=== PATIENT | male | born 1960 | race Caucasian/White ===

== ENCOUNTER 2016-09-21 19:42 | Emergency (ER) | payer OTHER ==
--- NOTE | ~2016-09-21 | CT16 ---
[facility]. [facility] A Service of [facility] RADIOLOGY TEXT RESULTS PATIENT: MARIALUISA HORTA LOCATION: SED : 64 UNIT #: [id number] AGE: [address]: Hitesh Meek MD SEX: M ORDER DR: [id number] [place] [id number] MR#: [id number] Acc #: [id number] NAME: MARIALUISA HORTA : 1960 SEX: M STUDY DATE/TIME: 09/21/2016 21:19 UNIT: SED ROOM: STUDY DESCRIPTION: CT Angio Chest for PE Attending Physician: Hitesh Meek M.D. Ordering Physician: Hitesh Meek M.D. Primary Care Physician: Alireza Arnold M.D. MEDICAL IMAGING REPORT This report is preliminary unless electronic signature is present. EXAM CTA chest, PE protocol. INDICATION Hemoptysis since 1 p.m. today with hypertension. PROCEDURE Contrast-enhanced CTA of the chest, attention on opacification of the pulmonary arteries. Coronal, 3D, MIP, sagittal reformatted images reconstructed and submitted. This CT exam was performed with one or more of the following radiation dose reduction techniques: automatic exposure control, adjustment of mA and/or kV according to patient size, and iterative reconstruction. COMPARISON None. FINDINGS Suboptimal contrast bolus despite repeat injection. There is no large central pulmonary embolus. No definite smaller peripheral embolus is seen, but difficult to completely excluded. No evidence for acute aortic injury. No adenopathy. No acute findings in the included upper abdomen. Paraseptal emphysema on the lung apices, right greater than left. Patchy infiltrate in the superior segment of the right lower lobe. No aggressive-appearing bone lesion. IMPRESSION 1. No evidence for pulmonary embolus. 2. Patchy opacity in the superior segment of the right lower lobe, suspicious for pneumonia. Otherwise, the lungs are clear. 3. Paraseptal emphysema in the apices, right greater than left. 1. [facility] A Service of [facility] RADIOLOGY TEXT RESULTS PATIENT: MARIALUISA HORTA LOCATION: [facility] : 64 UNIT #: [id number] AGE: [address]: Hitesh Meek MD SEX: M ORDER DR: Dictated by... Jose Elias Ham M.D. THIS IS AN ELECTRONICALLY VERIFIED REPORT Jose Elias Ham M.D. at 09/22/2016 2:27 PM SHAHRZAD/miller TD: 09/21/2016 23:16 JOB #: [id number] MEDICAL IMAGING REPORT Page 1 of 1
[~2016-09-21 19:42] MED LIST: BLOOD PRESSURE MED PO; CHOLESTEROL MED PO
[2016-09-21] MEDS ORDERED: LIPITOR20 MG PO (19:52)
[2016-09-21] MEDS ORDERED: BAYER CHEWABLE81 MG PO (19:52)
[2016-09-21] MEDS ORDERED: TOPROL XL50 MG PO (19:52)
[2016-09-21] MEDS ORDERED: PLETAL100 MG PO (19:52)
[2016-09-21] MEDS ORDERED: CLOPIDOGREL75 MG PO (19:52)
[2016-09-21] MEDS ORDERED: CHLORTHALIDONE25 MG PO (19:53)
[2016-09-21 20:29] LABS: BASOPHIL% 0.5 % (0-2.5); EOSINOPHIL% 0.5 % (0.0-7.0); HEMOGLOBIN 14.7 gm/dL (13.0-16.0); LYMPHOCYTE# 2.4 X10e3 (1.0-3.5); LYMPHOCYTE% 28.3 % (17.0-45.0); MEAN CELL VOLUME 88.5 FL (83-96); MEAN CORPUSCULAR HEMOGLOBIN 31.1 PG (28-34); MEAN CORPUSCULAR HGB CONC 35.1 g/dL (30-36); MEAN PLATELET VOLUME 6.6 FL (6.5-11.5); MONOCYTE% 11.3 % (3.0-12.0); NEUTROPHIL% 59.4 % (40-75); PLATELET COUNT 301 X10e3 (140-420); RED BLOOD COUNT 4.74 X10e (3.90-5.60); RED CELL DISTRIBUTION WIDTH 13.7 % (11.0-15.5); WHITE BLOOD COUNT 8.4 X10e3 (4.0-10.5)
[2016-09-21 20:31] LABS: DIFF IND NO
[2016-09-21 20:42] LABS: PROTHROMBIN TIME (PATIENT) 11.4 SECONDS (9.5-12.4)
[2016-09-21 20:50] LABS: PARTIAL THROMBOPLASTIN TIME 28.1 SECONDS (25.6-38.1)
[2016-09-21 20:51] LABS: ALBUMIN SERUM 4.7 g/dL (3.5-5.0); BILIRUBIN, DIRECT 0.2 mg/dL (0.0-0.2); BILIRUBIN,INDIRECT 0.9 mg/dL (0.0-0.9); BILIRUBIN,TOTAL 1.1 mg/dL (0.2-2.0); CALCIUM SERUM 9.2 mg/dL (8.4-10.2); CREATININE SERUM 0.8 mg/dL (0.6-1.4); POTASSIUM 3.1 mmol/L (3.5-5.1); PROTEIN TOTAL SERUM 7.8 g/dL (6.0-8.3)
[2016-09-22] MEDS ORDERED: DOXYCYCLINE150 MG (21:45)
== END 2016-09-21 23:03 | disposition home or self-care (01) ==
LOC: SED 19:42
PROVIDERS: Emergency Medicine
DX: J18.9 Pneumonia, unspecified organism (principal); J44.9 Chronic obstructive pulmonary disease, unspecified; F17.200 Nicotine dependence, unspecified, uncomplicated
CPT/HCPCS: 36415; 71275; 80048; 80076; 85025; 85610; 85730; 99284; Q9967

== ENCOUNTER 2016-09-22 21:37 | Inpatient (IN) | payer OTHER ==
--- NOTE | ~2016-09-22 | DS ---
Unit #: [id number] #: [id number] Patient: MARIALUISA HORTA [id number] [address] [place], [place] [address] [id number] I MR#: [id number] NAME: MARIALUISA HORTA ROOM: 567 Age: 55 Sex: M Admission Date: 09/23/2016 : 1960 Discharge Date: 09/26/2016 Attending Physician: Travon Valdez M.D. Primary Care Physician: Alireza Arnold M.D. DISCHARGE SUMMARY FINAL DIAGNOSES 1. Acute hypoxic respiratory failure, resolved. 2. Right lower lobe pneumonia. 3. Hemoptysis, which is resolved. 4. Acute exacerbation of chronic obstructive pulmonary disease. 5. Tobacco abuse. 6. Nonsustained V-tach. 7. Alcohol-induced cardiomyopathy. 8. Coronary artery disease, status post percutaneous coronary intervention and stent placement in June 2016. 9. Hypokalemia. 10. Tobacco abuse. 11. Peripheral vascular disease possible. DISCHARGE MEDICATIONS 1. Mini neb treatment q.i.d. 2. Tylenol q.6 p.r.n. 3. Maxitrol OP suspension, one drop b.i.d. 4. Discontinue Pletal. 5. Nicotine patch 21 mg daily. 6. Toprol XL 50 mg twice a day. 7. Chlorthalidone 25 mg daily. 8. Lipitor 40 mg q. h.s. 9. Aspirin 81 mg daily. 10. Plavix 75 mg daily. 11. Potassium 20 mEq daily. 12. Levaquin 500 mg daily. 13. Prednisone tapering dose. CONSULTATION DURING HOSPITALIZATION 1. Dr. Padmini Lloyd - Pulmonary Services. 2. Dr. Mookie Melchor - Cardiology Services. PROCEDURE PERFORMED DURING HOSPITALIZATION Bronchoscopy which was done on 09/23/[address] Lloyd which shows no endobronchial lesions but a lot of blood was seen which was aspirated. LAB WORKUP ON DISCHARGE Sodium 133, potassium 3.9, chloride 96, BUN 23, creatinine 0.8, magnesium 2.1, troponin 0.03. Sputum culture is 3+ normal kathya. Bronch culture is 3+ normal kathya. CBC shows WBC 14.1, hemoglobin 14.4, hematocrit 43.5 and platelet count of Unit #: [id number] #: [id number] Patient: MARIALUISA HORTA 320. Procalcitonin level less than 0.05. SIGNIFICANT RADIOLOGICAL STUDIES DONE DURING HOSPITALIZATION CTA of the chest which shows no evidence of pulmonary embolism. Patchy opacity is seen in the right lower lobe. Paraseptal emphysema in apices. HOSPITAL COURSE Mr. Marialuisa Horta is a 55-year-old male who came with shortness of breath and chest tightness and hemoptysis. The patient was admitted to telemetry unit at [facility]. Patient was started on IV Rocephin and IV Zithromax and IV Solu-Medrol. Dr. Lloyd was consulted. Patient had a bronchoscopy done, results are as above. The patient's hemoptysis has completely resolved. He is doing much better at this time. Tobacco cessation counseling has been done. The patient will be discharged home on Levaquin and prednisone tapering dose. Tobacco cessation counseling has been done. The patient did have a nonsustained V-tach. The patient does have a history of coronary artery disease, status post stent placement. The patient has been evaluated by cardiology and beta patti dose has been increased. Patient will return to cardiology in a few days on Monday for event monitor. He is not complaining of any chest pain or shortness of breath. EXAMINATION ON DISCHARGE VITAL SIGNS: Blood pressure is 151/99, respiratory rate 20, pulse is 73, temperature 97.6. Oxygen saturation is 96%. HEAD: Normocephalic. CHEST: Fair air entry. CVS: S1, S2 positive. Regular rhythm. ABDOMEN: Soft. DISCHARGE INSTRUCTIONS 1. The patient is being discharged home in stable condition. 2. Follow up with primary care provider in one week. 3. Follow up with cardiology on Monday to have event monitor placed. 4. Follow up with Dr. Lloyd in two weeks. Patient may need repeat bronchoscopy. 5. Tobacco cessation counseling has been done. Dictated by... Leena Hsu M.D. Gabriele TD: 09/27/2016 07:59 JOB #: [id number] Unit #: [id number] #: [id number] Patient: MARIALUISA HORTA DISCHARGE SUMMARY Page 1 of 1 X Leena Hsu MD DISCHARGE SUMMARY
--- NOTE | ~2016-09-22 | CO ---
Unit #: [id number] #: [id number] Patient: MARIALUISA HORTA [id number] [address] [place], [place] [address] [id number] I MR#: [id number] NAME: MARIALUISA HORTA ROOM: 567 Age: 55 Sex: M Admission Date: 09/22/2016 : 1960 Attending Physician: Travon Valdez M.D. Primary Care Physician: Alireza Arnold M.D. CONSULTATION REPORT HISTORY OF PRESENT ILLNESS Patient basically is a 55-year-old male who has a past medical history significant for likely COPD, coronary artery disease status post coronary stent placement, according to the patient, recently. He came in with the complaint of cough, shortness of breath and sputum production, along with some hemoptysis. I am seeing the patient at the bedside. He denies any headache, blurry vision. No chest pain. PAST MEDICAL HISTORY Significant for coronary artery disease status post angioplasty and stent placement, COPD, hypertension, dyslipidemia. SOCIAL HISTORY One pack smoker per day. Denies alcohol or drug abuse. FAMILY HISTORY None as per record. MEDICATIONS As per MAR. Has been reviewed. PHYSICAL EXAMINATION VITAL SIGNS: Temperature 98, pulse rate 70, respirations 12, blood pressure 130/70. NEUROLOGIC: Awake, alert and oriented. No neuro deficits. HEENT: PERRLA. EOMI. NECK: Supple. No JVD. CHEST: Bilateral air entry. Bilateral mild rhonchi. GI: Nontender. Soft. Bowel sounds positive. EXTREMITIES: No edema. SKIN: No rashes, no ulcer. LYMPHATIC: No lymphadenopathy. DIAGNOSTIC STUDIES Labs and imaging have been reviewed. ASSESSMENT 1. Hemoptysis. 2. Acute exacerbation of COPD. 3. Pneumonia, rule out any endobronchial lesion. PLAN Plan is to admit the patient and start him on IV antibiotics, continue bronchodilator, GI and DVT prophylaxis, IV steroids. Consent for Unit #: [id number] #: [id number] Patient: MARIALUISA HORTA bronchoscopy tomorrow. Patient will be closely monitored. Please see orders for detailed plan. Thank you very much for this consultation. We will continue to follow the patient. Dictated by... Padmini Lloyd M.D. ADAIR/db TD: 09/23/2016 10:38 JOB #: [id number] CONSULTATION REPORT Page 1 of 1 X Padmini Lloyd MD CONSULTATION REPORT
--- NOTE | ~2016-09-22 | CO ---
Unit #: [id number] #: [id number] Patient: MARIALUISA HORTA [id number] [address] [place], [place] [address] [id number] I MR#: [id number] NAME: MARIALUISA HORTA ROOM: 567 Age: 55 Sex: M Admission Date: 09/23/2016 : 1960 Attending Physician: Travon Valdez M.D. Primary Care Physician: Alireza Arnold M.D. CONSULTATION REPORT REASON FOR CONSULTATION Nonsustained ventricular tachycardia. HISTORY OF PRESENT ILLNESS This is a 55-year-old white male with history of having angioplasty and stents, drug-eluting stents placed to the LAD and RCA back in 06/[address] Sprague. His ejection fraction is 55% to 60% with mild aortic stenosis, hyperlipidemia, hypertension, COPD, continues to smoke and some alcohol abuse who came to the emergency room with hemoptysis and increased shortness of breath. Over the course of this hospitalization, he has been treated by Dr. Lloyd and has been had bronchoscopies and diagnosed with right lower lobe pneumonia and treatment for exacerbation of COPD. Overall, the patient has improved and plans were to go home possibly today on the quality assurance monitor body shows 11 to 12 beat run of nonsustained ventricular tachycardia. The patient was asymptomatic. The patient currently is on a beta-patti. We have been asked to assist with evaluation and management. During this hospitalization, he denies any chest pain; pain in his neck, bilateral jaws, shoulders, arms, or elbow. He denies any palpitations. His last office visit by Dr. Sprague was followed up after his stents, which was on 09/14. PAST MEDICAL HISTORY 1. Coronary artery disease, status post PCI and drug-eluting stent to the LAD on 06/17/2016 and status post PCI and drug-eluting stent to the RCA on 07/08/[address] Sprague at [facility]. 2. In 05/2016, 2D echo shows LVEF of 55% to 60% with mild mitral regurgitation, mild tricuspid regurgitation, and mild aortic stenosis. 3. Hyperlipidemia. 4. Hypertension. 5. COPD. 6. Nicotine abuse. 7. Alcohol abuse. 8. Marijuana abuse. PAST SURGICAL HISTORY Hand surgery as a child and status post PCI and drug-eluting stent to the LAD and RCA in 06/2016. HOME MEDICATIONS 1. Aspirin 81 mg p.o. daily. 2. Plavix 75 mg p.o. daily. 3. Lipitor 40 mg p.o. daily. 4. Toprol-XL 25 mg p.o. daily. 5. Pletal 100 mg p.o. twice daily. Unit #: [id number] #: [id number] Patient: MARIALUISA HORTA 6. Chlorthalidone 25 mg p.o. daily. 7. Doxycycline, dosage and frequency unavailable. ALLERGIES No known drug allergies. SOCIAL HISTORY The patient lives with his family. 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 He smokes a half to a pack of cigarettes a day, has been smoking most of his adult life. He drinks four or five beers a day, has been drinking for years but no hard liquor. Does smoke occasional marijuana, but no other polysubstance abuse reported. FAMILY HISTORY No known coronary artery disease in his immediate family members. REVIEW OF SYSTEMS See details in HPI. PHYSICAL EXAMINATION GENERAL: Mr. Horta is a 55-year-old white male, in no acute respiratory distress. He is awake, alert, and oriented. VITAL SIGNS: Currently, blood pressure 147/88, heart rate 76, respirations 18, temperature is 97.5, O2 saturations 95% on room air. NECK: Trachea midline. No thyromegaly or lymphadenopathy. Normal carotid upstrokes. No jugular venous distention. HEART: S1 and S2. Regular rate and rhythm. No clicks, murmurs, or rubs. LUNGS: Diminished. Few faint scattered wheezes that clears with cough. ABDOMEN: Soft and nontender. Positive bowel sounds present. No hepatosplenomegaly. EXTREMITIES: Pedal pulses are palpable. No pedal edema. DIAGNOSTIC STUDIES LABORATORY RESULTS: Glucose 145, BUN 23, creatinine 0.8, eGFR less than 102, sodium 133, potassium 3.9, chloride 96, CO2 of 27, calcium is 9.3, magnesium is 2.1. Total protein 7.4, albumin 4.1, bilirubin total 0.4, AST 20, ALT 19, alkaline phosphatase is 74. Alcohol level less than 5. WBCs 14.1, hemoglobin 14.4, hematocrit 43.5, and platelets is 320. Initial cardiac enzymes on admission; CK-MB is 2.3 with troponin less than 0.05. Cardiac enzymes today; CK total 65, MB is 4.7, percentage of MB 7.2, and troponin 0.03. INR is 1.0. Urine tox screen positive for marijuana, otherwise negative. Sputum Gram stain shows moderate gram positive cocci in pairs and chains, and clusters of viral sputum culture with normal kathya. Bronchoscopy final culture, 3+ normal respiratory kathya present. IMAGING STUDIES: CT of the chest on admission shows no evidence for pulmonary embolism, patchy opacity in the right lower lobe suspicious for pneumonia and some paraseptal emphysema. Chest x-ray shows no dense consolidation or opacity in the right lung. EKG shows sinus bradycardia, heart rate 58 beats per minute, early repolarization. Poor R-wave progression, left ventricular hypertrophy. Telemetry showed 11-beat run of nonsustained ventricular tachycardia. Unit #: [id number] #: [id number] Patient: MARIALUISA HORTA IMPRESSION 1. Mild sepsis, right lower lobe pneumonia. 2. Exacerbation of chronic obstructive pulmonary disease. 3. Nonsustained ventricular tachycardia. 4. Coronary artery disease, status post percutaneous coronary intervention and drug-eluting stent to the left anterior descending and right coronary artery in 06/2016. 5. Hyperlipidemia. 6. Hypertension. 7. Nicotine and alcohol abuse. 8. Marijuana use. 9. LVEF of 55% to 60% on 2D echo in 05/2016, mild aortic stenosis. PLAN 1. Cardiology consult to assist with evaluating and managing nonsustained ventricular tachycardia. 2. The patient was asymptomatic. The patient is on a beta-patti. We will increase the beta-patti, looking at his blood pressure can tolerate. Also, the patient's potassium level today is 3.9 and we will try to keep it over 4 like around 4.5, so the patient will be sent home on supplemental potassium. On exam, there is no signs or symptoms of unstable angina. Cardiac enzymes are negative. The patient has no signs or symptoms of acute congestive heart failure. 3. After Dr. Melchor examined the patient and reviewed the patient's records and history, felt it was permissible for the patient to go home today on the increased medications and have arranged an event recorder to start on this Monday. Instruct this patient to come to our office to get the event recorder and have notified our staff. 4. The patient is to follow with Dr. Sprague in about 4 to 6 weeks and by then the event recorder will be completed. 5. Further recommendations pending per Dr. Melchor. 6. Continue treatment for his pneumonia, exacerbation of chronic obstructive pulmonary disease. Encourage the patient to completely quit smoking, drinking alcohol, and stop marijuana use. Smoking cessation information provided to the patient and offered the patient's services to help with his addiction. The patient is noted to have been on Pletal according to the patient looking on the pill bottle, it was prescribed by Dr. Arnold's office that will be stopped due to the patient having hemoptysis on admission. He needs to continue on his Plavix and aspirin; however, for his recent PCI and drug-eluting stents. Instruct the patient if any recurrent hemoptysis, to call Dr. Sprague's office or to return to the emergency room if necessary if he sees any unusual bleeding. Thank you very much for allowing us to assist in care. Dictated by... Sheridan Tello A.P.R.N. for Mookie Melchor M.D. ELISHA/paco TD: 09/27/2016 12:18 JOB #: [id number] Unit #: [id number] #: [id number] Patient: MARIALUISA HORTA CONSULTATION REPORT Page 1 of 1 X Sheridan Tello APRN X CONSULTATION REPORT
--- NOTE | ~2016-09-22 | HP ---
Unit #: [id number] #: [id number] Patient: MARIALUISA HORTA [id number] [address] [place], [place] [address] [id number] I MR#: [id number] NAME: MARIALUISA HORTA ROOM: 567 Age: 55 Sex: M Admission Date: 09/23/2016 : 1960 Attending Physician: Travon Valdez M.D. Primary Care Physician: Alireza Arnold M.D. HISTORY AND PHYSICAL CHIEF COMPLAINT Hemoptysis. HISTORY OF PRESENTING ILLNESS This 55-year-old male who has a history of hypertension, hyperlipidemia, coronary artery disease status post stent placement, tobacco abuse, came to ER on Monday with hemoptysis and shortness of breath. Patient was diagnosed with pneumonia and was discharged home with antibiotic doxycycline. The patient continued to get worse. Yesterday he was having severe and significant hemoptysis and shortness of breath which was not getting better. He came to ER for further evaluation and was admitted to hospital for right lower lung pneumonia. According to patient, he is still having significant blood in the sputum. He is complaining of shortness of breath although no orthopnea, no paroxysmal nocturnal dyspnea. He does have exertional dyspnea. He does wheeze off and on. Patient is a smoker, has been smoking two packs per day for a long period of time. He does complain of some chest pain on the right lower chest. No complaint of abdominal pain. No complaint of nausea or vomiting. He is also complaining of left eye pain. While working he thinks that there was a foreign body went in his eye and since then he has been having increased drainage although he does not have any pain in the eye. PAST MEDICAL HISTORY 1. Coronary artery disease, status post angioplasty, stent placement in June 2016 at [facility] by Dr. Sprague. 2. COPD. 3. Hypertension. 4. Hyperlipidemia. 5. Possible peripheral vascular disease. SOCIAL HISTORY Patient has a history of smoking, has been smoking for long period of time, smokes two packs per day. He does drink beer almost three to seven beers on a daily basis. No history of drug abuse. FAMILY HISTORY Family history is not significant. ALLERGIES No known drug allergies. HOME MEDICATIONS Home medications are: 1. Aspirin 81 mg daily. Unit #: [id number] #: [id number] Patient: MARIALUISA HORTA 2. Plavix 75 mg daily. 3. Lipitor 40 mg q.h.s. 4. Toprol 25 mg daily. 5. Pletal 100 mg b.i.d. 6. Chlorthalidone 25 mg daily. 7. Doxycycline. REVIEW OF SYMPTOMS As per history of presenting illness. No history of dizziness. No history of fever, chills or rigors. No history of ear, nose, throat problem. No history of abdominal pain. No nausea or vomiting. No diarrhea. No black colored stools. Rest is as per history of presenting illness. PHYSICAL EXAMINATION GENERAL APPEARANCE: Patient is lying in bed, no respiratory distress at this time. VITAL SIGNS: Blood pressure is 151/88, on admission it was 171/102, respiratory rate 20, pulse is 91, temperature 97.9, and oxygen saturation is 91%. HEENT: Head is normocephalic. Eye movements are normal. Left eye there is mild conjunctival congestion and a lot of clear drainage and watery drainage. No nystagmus. NECK: Neck is supple. No carotid bruit. CHEST: Has decreased air entry. Bilateral wheezing is heard. Right lower lobe crackle is heard. CVS: S1, S2 positive, regular rhythm. ABDOMEN: Abdomen is soft. No tenderness. No rigidity. No rebound. EXTREMITIES: Negative edema. Pulses are palpable. STRUCTURAL METAL WORKER: Awake, alert, oriented x3. No focal neurological deficit. DIAGNOSTIC STUDIES LABORATORY WORKUP: WBC 8.4, hemoglobin 15.1, hematocrit 42.7 and platelet count of 314. Troponin is less than 0.05. Sodium 128, potassium 3.2, chloride 90, BUN 18, creatinine 0.9. Liver enzymes are normal. Alcohol in the blood was less than 5. Urine drug screen is positive for marijuana. Procalcitonin level is less than 0.05. IMAGING: Chest x-ray single view was done which shows no dense consolidation. Opacity in the right lung is seen. CT of the chest was done on September 21 which shows no evidence of pulmonary embolism. Patchy opacity is emma in the right lower lobe suspicious for pneumonia. ASSESSMENT Patient is being admitted to a telemetry unit with diagnoses of: 1. Right lower lobe pneumonia, most likely community acquired pneumonia. 2. Significant persistent hemoptysis. 3. Acute exacerbation of chronic obstructive pulmonary disease. 4. Tobacco abuse. 5. History of coronary artery disease. 6. Hypertension. PLAN Plan is admit to telemetry unit. Dr. Lloyd has been consulted. IV antibiotics have been started. IV Solu-Medrol is being started. NicoDerm patch will be placed. Mini-neb treatment q.6 h. will be done. Patient is Unit #: [id number] #: [id number] Patient: MARIALUISA HORTA scheduled for bronchoscopy tomorrow. Tobacco cessation counseling done. Discussed with patient and the patient's family about plan of care. Technical Developer will be consulted also for the left eye foreign body sensation to rule out any corneal tear. Please refer to progress note for further orders. Dictated by Jez Royal/roxi TD: 09/23/2016 16:50 JOB #: [id number] HISTORY AND PHYSICAL Page 1 of 1 X Leena Hsu MD X HISTORY AND PHYSICAL
--- NOTE | ~2016-09-22 | EKG ---
PATIENT: MARIALUISA HORTA UNIT #: [id number] Ventricular Rate: 58 BPM Atrial Rate: 58 BPM P-R Interval: 114 ms QRS Duration: 82 ms Q-T Interval: 396 ms QTC Calculation(Bezet): 388 ms P Fouke: 39 degrees Calculated R Fouke: 47 degrees Calculated T Fouke: 54 degrees Diagnosis Line: Sinus bradycardia Diagnosis Line: Otherwise normal ECG Diagnosis Line: No previous ECGs available Diagnosis Line: Confirmed by GILBERTO HAMMONDS MD ([id number]) on Diagnosis Line: 09/26/2016 5:53:24 PM INTERPRETING MD: JOSE ALFREDO
--- NOTE | ~2016-09-22 | CR72 ---
[facility] A Service [facility] RADIOLOGY TEXT RESULTS PATIENT: MARIALUISA HORTA LOCATION: [place] [address] : [birth year] UNIT #: [id number] AGE: [address]: Travon Valdez MD SEX: M ORDER DR: [id number] [address] [address] [id number] E MR#: [id number] Acc #: [id number] NAME: MARIALUISA HORTA : 1960 SEX: M STUDY DATE/TIME: 09/22/2016 22:05 UNIT: SED ROOM: STUDY DESCRIPTION: CR Chest Single View Portable Attending Physician: Anton Inman M.D. Ordering Physician: Anton Inman M.D. Primary Care Physician: Alireza Arnold M.D. MEDICAL IMAGING REPORT This report is preliminary unless electronic signature is present. EXAM Portable chest INDICATION Hemoptysis today. PROCEDURE Frontal view chest. COMPARISON CTA of the chest performed yesterday. FINDINGS Heart size is normal. No dense consolidation. Mild diffuse parenchymal coarsening. No pleural fluid or pneumothorax. Opacity in the right lung shown on the previous CT is not well seen. IMPRESSION No dense consolidation. Opacity in the right lung on yesterday's CT is not well seen on the study. Dictated by... Jose Elias Ham M.D. THIS IS AN ELECTRONICALLY VERIFIED REPORT Jose Elias Ham M.D. at 09/23/2016 3:08 PM EED/lamar TD: 09/22/2016 22:55 JOB #: [id number] [facility] A Service [facility] RADIOLOGY TEXT RESULTS PATIENT: MARIALUISA HORTA LOCATION: [place] [address] : [birth year] UNIT #: [id number] AGE: [address]: Travon Valdez MD SEX: M ORDER DR: MEDICAL IMAGING REPORT Page 1 of 1
--- NOTE | ~2016-09-22 | OR ---
Unit #: [id number] #: [id number] Patient: MARIALUISA HORTA [id number] [address] [address] [id number] MR#: [id number] NAME: MARIALUISA HORTA ROOM: 567 Date of Procedure: Admission Date: 09/23/2016 Surgeon: Padmini Lloyd M.D. : 1960 Attending Physician: Travon Valdez M.D. Primary Care Physician: Alireza Arnold M.D. PROCEDURE OPERATIVE NOTE PROCEDURE PERFORMED Diagnostic bronchoscopy. INDICATION Pneumonia. PRE-PROCEDURE DIAGNOSIS Pneumonia. POST PROCEDURE DIAGNOSIS Pneumonia. DETAILS OF THE PROCEDURE After taking consent from the patient explaining the risks and benefits, the patient was placed in a proper position. Bronchoscope introduced through the oral cavity. Vocal cords appeared to be symmetrically moving towards the midline. Trachea was normal. Pamela was sharp. We examined the right upper, right middle, right lower lobe, left upper lobe, lingula and left lower lobe. No endobronchial lesion was found. There were thick mucoid secretions in both lungs which were therapeutically suctioned. There was also blood-tinged secretions in the right lower lobe area which was suctioned. The patient tolerated the procedure very well. No complications happened. Dictated by... Jez Marie/victorino TD: 09/24/2016 15:57 JOB #: [id number] Unit #: [id number] #: [id number] Patient: MARIALUISA HORTA PROCEDURE OPERATIVE NOTE Page 1 of 1 X Padmini Lloyd MD PROCEDURE OPERATIVE NOTE
[~2016-09-22 21:37] MED LIST changes: +BAYER CHEWABLE81 MG PO; +CHLORTHALIDONE25 MG PO; +CLOPIDOGREL75 MG PO; +LIPITOR20 MG PO; +PLETAL100 MG PO; +TOPROL XL50 MG PO
[2016-09-22] MEDS ORDERED: DOXYCYCLINE150 MG (21:45)
[2016-09-22 22:24] LABS: BASOPHIL# 0.1 X10e3 (0-0.3); BASOPHIL% 0.7 % (0-2.5); DIFF IND NO; EOSINOPHIL# 0.1 X10e3 (0-0.7); EOSINOPHIL% 0.7 % (0.0-7.0); HEMATOCRIT 42.7 % (38.0-50.0); HEMOGLOBIN 15.1 gm/dL (13.0-16.0); LYMPHOCYTE# 1.8 X10e3 (1.0-3.5); LYMPHOCYTE% 21.8 % (17.0-45.0); MEAN CELL VOLUME 88.1 FL (83-96); MEAN CORPUSCULAR HEMOGLOBIN 31.1 PG (28-34); MEAN CORPUSCULAR HGB CONC 35.3 g/dL (30-36); MEAN PLATELET VOLUME 6.5 FL (6.5-11.5); MONOCYTE# 0.8 X10e3 (0-1.0); MONOCYTE% 9.5 % (3.0-12.0); NEUTROPHIL# 5.7 X10e3 (1.5-7.1); NEUTROPHIL% 67.3 % (40-75); PLATELET COUNT 314 X10e3 (140-420); RED BLOOD COUNT 4.84 X10e (3.90-5.60); RED CELL DISTRIBUTION WIDTH 13.6 % (11.0-15.5); WHITE BLOOD COUNT 8.4 X10e3 (4.0-10.5)
[2016-09-22 22:37] LABS: PROTHROMBIN TIME (PATIENT) 11.4 SECONDS (9.5-12.4)
[2016-09-22 22:41] LABS: POC - CKMB 2.3 ng/mL (0.0-7.9); POC - TROPONIN <0.05 ng/mL (<=0.05)
[2016-09-22 22:44] LABS: PARTIAL THROMBOPLASTIN TIME 28.1 SECONDS (25.6-38.1)
[2016-09-22 22:46] LABS: ALBUMIN SERUM 4.7 g/dL (3.5-5.0); BILIRUBIN, DIRECT 0.2 mg/dL (0.0-0.2); BILIRUBIN,INDIRECT 0.8 mg/dL (0.0-0.9); CALCIUM SERUM 9.5 mg/dL (8.4-10.2); CREATININE SERUM 0.9 mg/dL (0.6-1.4); GLOM FILT RATE Estimated 97.2 mL/min (>60); POTASSIUM 3.2 mmol/L (3.5-5.1); PROTEIN TOTAL SERUM 7.8 g/dL (6.0-8.3)
[2016-09-22 23:28] LABS: AMPHETAMINE NEG (NEG); BARBITURATES NEG (NEG); BENZODIAZEPINES NEG (NEG); COCAINE NEG (NEG); MARIJUANA POS (NEG); OPIATES NEG (NEG); TRICYCLIC ANTIDEPRESSANTS NEG (NEG); U METHADONE NEG (NEG)
[2016-09-23 08:02] LABS: BASOPHIL% 0.1 % (0-2.5); HEMATOCRIT 41.9 % (38.0-50.0); LYMPHOCYTE# 1.1 X10e3 (1.0-3.5); LYMPHOCYTE% 19.3 % (17.0-45.0); MEAN CELL VOLUME 90.2 FL (83-96); MEAN CORPUSCULAR HEMOGLOBIN 30.2 PG (28-34); MEAN CORPUSCULAR HGB CONC 33.5 g/dL (30-36); MONOCYTE# 0.2 X10e3 (0-1.0); MONOCYTE% 3.7 % (3.0-12.0); NEUTROPHIL# 4.3 X10e3 (1.5-7.1); NEUTROPHIL% 76.9 % (40-75); PLATELET COUNT 308 X10e3 (140-420); RED BLOOD COUNT 4.64 X10e (3.90-5.60); RED CELL DISTRIBUTION WIDTH 13.5 % (11.0-15.5); WHITE BLOOD COUNT 5.6 X10e3 (4.0-10.5)
[2016-09-23 08:03] LABS: DIFF IND NO
[2016-09-23 08:34] LABS: BUN/CREATININE RATIO 18.57; CALCIUM SERUM 9.3 mg/dL (8.4-10.2); CREATININE SERUM 0.7 mg/dL (0.6-1.4); GLOM FILT RATE Estimated 107.8 mL/min (>60); POTASSIUM 4.1 mmol/L (3.5-5.1)
[2016-09-24 15:52] LABS: BODY FLUID APPEARANCE BLOODY; BODY FLUID SOURCE PLEURAL
[2016-09-25 06:30] LABS: HEMATOCRIT 43.7 % (38.0-50.0); HEMOGLOBIN 14.3 gm/dL (13.0-16.0); MEAN CELL VOLUME 91.1 FL (83-96); MEAN CORPUSCULAR HEMOGLOBIN 29.7 PG (28-34); MEAN CORPUSCULAR HGB CONC 32.6 g/dL (30-36); MEAN PLATELET VOLUME 7.1 FL (6.5-11.5); RED BLOOD COUNT 4.8 X10e (3.90-5.60); RED CELL DISTRIBUTION WIDTH 13.5 % (11.0-15.5)
[2016-09-25 06:31] LABS: WHITE BLOOD COUNT 19.3 X10e3 (4.0-10.5)
[2016-09-25 07:08] LABS: ALBUMIN SERUM 4.4 g/dL (3.5-5.0); BILIRUBIN,TOTAL 0.4 mg/dL (0.2-2.0); BUN/CREATININE RATIO 22.5; CALCIUM SERUM 9.7 mg/dL (8.4-10.2); CREATININE SERUM 0.8 mg/dL (0.6-1.4); POTASSIUM 4.4 mmol/L (3.5-5.1); PROTEIN TOTAL SERUM 7.4 g/dL (6.0-8.3)
[2016-09-26 05:32] LABS: HEMATOCRIT 43.5 % (38.0-50.0); HEMOGLOBIN 14.4 gm/dL (13.0-16.0); MEAN CELL VOLUME 89.7 FL (83-96); MEAN CORPUSCULAR HEMOGLOBIN 29.8 PG (28-34); MEAN CORPUSCULAR HGB CONC 33.2 g/dL (30-36); MEAN PLATELET VOLUME 6.9 FL (6.5-11.5); RED BLOOD COUNT 4.84 X10e (3.90-5.60); RED CELL DISTRIBUTION WIDTH 13.7 % (11.0-15.5); WHITE BLOOD COUNT 14.1 X10e3 (4.0-10.5)
[2016-09-26 07:23] LABS: BUN/CREATININE RATIO 28.75; CALCIUM SERUM 9.3 mg/dL (8.4-10.2); CREATININE SERUM 0.8 mg/dL (0.6-1.4); MAGNESIUM 2.1 mg/dL (1.6-3.0); POTASSIUM 3.9 mmol/L (3.5-5.1)
[2016-09-26 07:46] LABS: %MB 7.2 % (0.0-4.0); MB 4.7 ng/ml
[2016-09-26] MEDS ORDERED: ALBUTEROL SULFATE INH (15:33)
[2016-09-26] MEDS ORDERED: ACETAMINOPHEN650 M1 PO (15:34)
[2016-09-26] MEDS ORDERED: MAXITROL EYE DRO5 ML OS (15:38)
[2016-09-26] MEDS ORDERED: TOPROL XL50 MG PO (15:40)
[2016-09-26] MEDS ORDERED: K-DUR20 ME1 PO (15:41)
[2016-09-26] MEDS ORDERED: PREDNISONE10 MG PO (15:41)
[2016-09-26] MEDS ORDERED: LEVAQUIN750 MG PO (15:42)
[2016-09-26] MEDS ORDERED: NICOTINE PATCH1 EACH TD (15:45)
== END 2016-09-26 16:40 | disposition home or self-care (01) | DRG 166 ==
LOC: SED 21:37 → C5C 23:35 → SED 23:35 → SEDOF 23:35 → C5C 09-23 02:56 → SEDOF 09-23 02:56 → C5C 09-23 04:50
PROVIDERS: Emergency Medicine; Internal Medicine; Physician Assistant Medical
PROC: 0B9F8ZX Drainage of Right Lower Lung Lobe, Via Natural or Artificial Opening Endoscopic, Diagnostic (ICD-10-PCS; principal; 2016-09-24 12:00)
PROC: 0B9M8ZZ Drainage of Bilateral Lungs, Via Natural or Artificial Opening Endoscopic (ICD-10-PCS; 2016-09-24 12:00)
DX: J96.01 Acute respiratory failure with hypoxia (principal); J18.9 Pneumonia, unspecified organism; I47.2 Ventricular tachycardia; I42.6 Alcoholic cardiomyopathy; J44.0 Chronic obstructive pulmonary disease with (acute) lower respiratory infection; J44.1 Chronic obstructive pulmonary disease with (acute) exacerbation; R04.2 Hemoptysis; I25.10 Atherosclerotic heart disease of native coronary artery without angina pectoris; Z95.5 Presence of coronary angioplasty implant and graft; I10 Essential (primary) hypertension; E78.5 Hyperlipidemia, unspecified; I73.9 Peripheral vascular disease, unspecified; F17.210 Nicotine dependence, cigarettes, uncomplicated; I08.2 Rheumatic disorders of both aortic and tricuspid valves; Z79.82 Long term (current) use of aspirin; F10.10 Alcohol abuse, uncomplicated; F12.10 Cannabis abuse, uncomplicated; E87.6 Hypokalemia; Z71.6 Tobacco abuse counseling
CPT/HCPCS: 71010; 80048; 80053; 80076; 80307; 82308; 82550; 82553; 83735; 84484; 85025; 85027; 85610; 85730; 87070; 87102; 87116; 87205; 87206; 87252; 87254; 87278; 88108; 88305; 88312; 89051; 93005; 94640; 94760; 96361; 96374; 99285; G0480; J0171; J0456; J0696; J1100; J2250; J2920; J2930